=== PATIENT | female | born 1955 | race Caucasian/White ===

== ENCOUNTER → 2017-03-24 | Outpatient (CLI) | payer OTHER ==
[~2017-03-24] MED LIST: ADVIL200 M1 PO; ARISTOCORT A 0.15 GM TOP; ASPIRIN81 M2 PO; ATARAX PO; LIPITOR20 MG PO; NEXIUM PO; OMEPRAZOLE40 MG PO; PEPCID AC; PRILOSEC20 M1 PO; TYLENOL SINUS C1 TAB PO; ZYRTEC10 M2 PO
--- NOTE | ~2017-03-24 | US10 ---
[id number] [facility] [address] [place], [place] [address] [id number] O MR#: [id number] Acc #: [id number] NAME: DAVID SADLER : 1955 SEX: F STUDY DATE/TIME: 03/24/2017 7:45 UNIT: [facility] ROOM: STUDY DESCRIPTION: US Aorta Complete Attending Physician: Bret Gutiérrez M.D. Ordering Physician: Bret Gutiérrez M.D. Primary Care Physician: Bret Gutiérrez M.D. MEDICAL IMAGING REPORT This report is preliminary unless electronic signature is present EXAM Aortic ultrasound INDICATION Follow-up aortic aneurysm. COMPARISON There is a comparison study from 03/21/2015. FINDINGS The abdominal aorta is evaluated with morrow-scale imaging and color-flow Doppler. Proximally, the aorta is 1.6 cm in AP dimension and 2.3 cm in width. The midportion is about 3.2 cm in maximum dimension. The lower aorta is enlarged measuring 3.4 x 3.1 cm on the transverse images. The enlarged area is about 4 cm in length. IMPRESSION 1. There is a distal abdominal aortic aneurysm which measures about 3.4 cm in maximal transverse dimension up from 3.3 cm previously. Otherwise, there has been no change. Dictated by... Negrito Mena M.D. THIS IS AN ELECTRONICALLY VERIFIED REPORT Negrito Mena M.D. at 03/25/2017 11:43 AM MEAGHAN/mateus TD: 03/25/2017 10:10 JOB #: [id number] MEDICAL IMAGING REPORT Page 1 of 1 COPY
--- NOTE | ~2017-03-24 | MY29 ---
[facility] A Service of [facility] RADIOLOGY TEXT RESULTS PATIENT: DAVID SADLER LOCATION: [facility] : 51 UNIT #: [id number] AGE: [address]: GABBY GUTIÉRREZ MD (INT MED) SEX: F ORDER DR: [id number] [facility] [address] [place], [place] [address] [id number] O MR#: [id number] Acc #: [id number] NAME: DAVID SADLER. : 1955 SEX: F STUDY DATE/TIME: 03/24/2017 8:10 UNIT: [facility] ROOM: STUDY DESCRIPTION: MY KAELYN SCREENING W/ CAD BILAT Attending Physician: Gabby Gutiérrez M.D. Ordering Physician: Gabby Gutiérrez M.D. Primary Care Physician: Gabby Gutiérrez M.D. MEDICAL IMAGING REPORT This report is preliminary unless electronic signature is present EXAM Digital screening mammogram, 03/24/2017 HISTORY 62-year-old woman no risk elevation. Annual screening. COMPARISON Mammograms date to 12/08/2005 with most recent 03/17/2016. FINDINGS Digital imaging of each breast was completed utilizing a two-view examination of each breast in craniocaudal and mediolateral-oblique projections. Review and interpretation of digital mammograms include a second review in conjunction with FDA-approved CAD device. There is a normal parenchymal presentation bilaterally consistent with the patient's age. There are no breast masses imaged and no parenchymal asymmetry is visualized. There are no suspicious microcalcifications and I see no focal architectural disturbance. IMPRESSION Negative screening digital mammogram. One-year followup recommended. Patients over the age of 40 are entered into a reminder system with target due date for the next mammogram. A result letter will also be sent to the patient. BIRADS: 1 Negative ADDENDUM Breast parenchyma is fatty replaced. Dictated by... Peterson Bhatti M.D. [facility] A Service of [facility] RADIOLOGY TEXT RESULTS PATIENT: DAVID SADLER LOCATION: [facility] : 51 UNIT #: [id number] AGE: [address]: GABBY GUTIÉRREZ MD (INT MED) SEX: F ORDER DR: THIS IS AN ELECTRONICALLY VERIFIED REPORT Peterson Bhatti M.D. at 03/24/2017 1:10 PM María Elena TD: 03/24/2017 12:31 JOB #: [id number] MEDICAL IMAGING REPORT Page 1 of 1 COPY
== END | disposition home or self-care (01) ==
LOC: CWCC 07:33
DX: Z12.31 Encounter for screening mammogram for malignant neoplasm of breast (principal); I71.4 Abdominal aortic aneurysm, without rupture; R92.8 Other abnormal and inconclusive findings on diagnostic imaging of breast
CPT/HCPCS: 76770; G0202